=== PATIENT | male | born 1985 | race Caucasian/White ===

== ENCOUNTER → 2024-07-10 | Outpatient (CLI) | payer OTHER | LOC: M PLAIMG 07:33 | PROVIDERS: ATTEND Orthopaedic Surgery | DX: M54.2 Cervicalgia (principal) ==

== ENCOUNTER → 2024-08-18 | Outpatient (CLI) | payer OTHER | LOC: M CARPUL 08:01 | PROVIDERS: ATTEND Physician Assistant | DX: R05.3 Chronic cough (principal) ==